=== PATIENT | female | born 1950 | race Two or more races ===

== ENCOUNTER 2021-09-09 07:32 | Outpatient (CLI) | payer OTHER | END 2021-09-09 07:33 | disposition home or self-care (01) | LOC: NUCLEAR 07:32 | PROVIDERS: ATTEND Internal Medicine Cardiovascular Disease | DX: I25.10 Atherosclerotic heart disease of native coronary artery without angina pectoris (principal); R06.02 Shortness of breath; I70.0 Atherosclerosis of aorta | CPT/HCPCS: 78452; 93017; A9500; J0153 ==